=== PATIENT | male | born 2000 | race Caucasian/White ===

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

== ENCOUNTER 2021-02-13 19:27 | Emergency (ER) | payer BC ==
[~2021-02-13] VITALS: Ht 177.8 cm; Wt 61.4 kg
[~2021-02-13 19:27] MED LIST: RISPERDAL 1M1 MG/TAB PO
[2021-02-13 19:35] VITALS: BP 128/67
[2021-02-13] MEDS ORDERED: CIPRO 250MG TA250 MG PO (20:30)
[2021-02-13] MEDS ORDERED: CEPHALEXIN500 M1 PO (20:30)
[2021-02-13 20:37] VITALS: PULSE 87; TEMP 98.6
== END 2021-02-13 20:37 | disposition home or self-care (01) ==
LOC: COL.ER 19:27
DX: L02.611 Cutaneous abscess of right foot (principal); F84.0 Autistic disorder; Z79.899 Other long term (current) drug therapy